=== PATIENT | male | born 1980 | race Caucasian/White ===

== ENCOUNTER → 2020-06-24 | Outpatient (CLI) | payer BC ==
[~2020-06-24] MED LIST: CELEBREX 200MG200 MG PO; CRESTOR40 MG PO; CYCLOBENZAPRINE5 MG PO; CYMBALTA60 MG PO; KETOCONAZOLE15 GM TD; MAGOX 400400 MG PO; PROTONIX 40 MG40 M1 PO; TOPROL XL50 MG PO; VITAMIN D250000 UNIT PO; XALATAN OP SOL2.5 ML EYEBOTH; ZOFRAN4 MG PO
== END ==
LOC: EXRD 14:35
DX: R07.9 Chest pain, unspecified (principal); R91.8 Other nonspecific abnormal finding of lung field
CPT/HCPCS: 71046

== ENCOUNTER → 2020-07-09 | Outpatient (CLI) | payer BC | LOC: KOH-I 12:57 | DX: N28.1 Cyst of kidney, acquired (principal); N28.9 Disorder of kidney and ureter, unspecified; R10.9 Unspecified abdominal pain; N27.9 Small kidney, unspecified | CPT/HCPCS: 76775 ==

== ENCOUNTER → 2021-10-23 | Outpatient (CLI) | payer OTHER ==
[2021-10-23 12:34] LABS: HEMOGLOBIN 15.1 gm/dl (14.0-17.5); RED BLOOD COUNT 5.11 M/UL (4.20-5.50); WHITE BLOOD COUNT 9.8 K/UL (4.5-11.0)
[2021-10-23 13:05] LABS: BUN/CREATININE RATIO 9 (0-10)
[2021-10-24 07:11] LABS: CREATININE, URINE 178.1 mg/dL (Not Estab.)
== END ==
LOC: LAB 11:45
PROVIDERS: Nurse Practitioner Family
DX: Z00.00 Encounter for general adult medical examination without abnormal findings (principal); Z12.5 Encounter for screening for malignant neoplasm of prostate; R73.9 Hyperglycemia, unspecified; R53.83 Other fatigue; G43.909 Migraine, unspecified, not intractable, without status migrainosus; K21.9 Gastro-esophageal reflux disease without esophagitis; E78.00 Pure hypercholesterolemia, unspecified; E53.8 Deficiency of other specified B group vitamins; E55.9 Vitamin D deficiency, unspecified
CPT/HCPCS: 36415; 80053; 80061; 81001; 82043; 82570; 82607; 83036; 84153; 84439; 84443; 85025